=== PATIENT | female | born 1965 | race American Indian/Alaskan Native ===

== ENCOUNTER 2017-07-14 09:00 | Emergency (ER) | payer OTHER ==
[2017-07-14] MEDS ORDERED: ASPIRIN PO ONE (09:20)
[2017-07-14] MEDS ORDERED: ASPIRIN ONE (09:22)
[2017-07-14 09:39] LABS: Basophils % (Auto) 0.5 % (0.0-1.8); Eosinophils # (Auto) 0.1 K/mm3 (0.0-0.4); Eosinophils % (Auto) 1.9 % (0.0-4.3); Hematocrit 38.6 % (30.3-42.9); Lymphocytes # (Auto) 1.3 K/mm3 (1.2-5.4); Lymphocytes % (Auto) 27.4 % (13.4-35.0); Mean Corpuscular HGB Conc 34 % (30-34); Mean Corpuscular Hemoglobin 31 pg (28-32); Mean Corpuscular Volume 92 fl (79-97); Monocytes # (Auto) 0.5 K/mm3 (0.0-0.8); Monocytes % (Auto) 10.3 % (0.0-7.3); Platelet Count 125 K/mm3 (140-440); Red Blood Count 4.19 M/mm3 (3.65-5.03); Red Cell Distribution Width 14.6 % (13.2-15.2)
[2017-07-14 09:55] LABS: BUN/Creatinine Ratio 11; Blood Urea Nitrogen 8 mg/dL (7-17); Calcium 9.4 mg/dL (8.4-10.2); Hemolysis Index 3
--- NOTE | 2017-07-14 11:31 | Emergency Department Report ---
ED Chest Pain HPI - General Chief Complaint: Chest Pain Stated Complaint: CHEST PAIN, DIZZY Time Seen by Provider: 07/14/17 10:03 Source: patient Mode of arrival: Ambulatory Limitations: No Limitations - History of Present Illness Initial Comments: 52-year-old female with history of hypertension, diabetes and tobacco abuse presents with several months of left-sided sharp chest pain. Chest pain is worse with exertion. Currently 3 out of 10 pain severity at rest. Pain is been intermittent. She is concerned that the pain has been more frequent and more severe recently. No radiation of the pain. In 2014 while undergoing elective colonoscopy, the procedure was canceled due to EKG or heel top lift splitter tracing abnormality. She was referred to Dr. Tessa Mclean at [facility]. Outpatient stress test showed a "30 -40%" abnormality. She was placed on metoprolol. Due to lack of health insurance she was unable to follow up with the port captain. She is now followed at [facility]. She is followed every 3-4 months for management of hypertension diabetes. There is no family history of heart disease. There is extensive family history of stroke, hypertension and diabetes. MD Complaint: chest pain -: Gradual, month(s) (several months) Onset: during rest, during exertion Pain Location: left chest Pain Radiation: none Severity: mild Severity scale (0 -10): 3 Quality: sharp Consistency: intermittent Improves With: rest Worsens With: exertion Context: other (2014 history of outpatient cardiac evaluation) Aspirin use within the Past 7 Days: (1) Yes - Related Data On Oral Contraceptives: No Home Medications Medication Instructions Recorded Confirmed Last Taken metFORMIN [Glucophage] 500 mg PO BID 03/18/13 04/13/14 04/12/14 Aspirin EC [Aspirin Enteric Coated 81 mg PO PRN 04/06/14 04/13/14 04/05/14 TAB] Lisinopril [Zestril TAB] 20 mg PO QDAY 04/06/14 04/13/14 04/13/14 05:30 Loratadine [Claritin] 10 mg PO PRN 04/06/14 04/13/14 04/04/14 Allergies Allergy/AdvReac Type Severity Reaction Status Date / Time No Known Allergies Allergy Unverified 03/18/13 01:23 Heart Score - HEART Score History: Highly suspicious EKG: Normal Age: 45-65 Risk factors: > 3 risk factors or hx of atherosclerotic disease Troponin: < normal limit HEART Score: 5 ED Review of Systems ROS: Stated complaint: CHEST PAIN, DIZZY Other details as noted in HPI Comment: All other systems reviewed and negative Constitutional: denies: fever, malaise ENT: denies: ear pain, throat pain Respiratory: denies: cough Cardiovascular: chest pain ED Past Medical Hx - Past Medical History Previous Medical History?: Yes Hx Hypertension: Yes (FOR 9 YRS, DR. DAVIES- PCP) Hx CVA: No Hx Heart Attack/AMI: No Hx Congestive Heart Failure: No Hx Diabetes: Yes (FOR 9 YRS) Hx Deep Vein Thrombosis: No Hx Pulmonary Embolism: No Hx GERD: No Hx Liver Disease: No Hx Renal Disease: No Hx Sickle Cell Disease: No Hx Arthritis: No Hx Headaches / Migraines: No Hx Seizures: No Hx Kidney Stones: No Hx Psychiatric Treatment: No Hx Asthma: No Hx COPD: No Hx Tuberculosis: No Hx Dementia: No Hx HIV: No - Surgical History Past Surgical History?: No - Social History Smoking Status: Current Every Day Smoker Substance Use Type: Alcohol, Prescribed - Medications Home Medications: Home Medications Medication Instructions Recorded Confirmed Last Taken Type metFORMIN [Glucophage] 500 mg PO BID 03/18/13 04/13/14 04/12/14 History Aspirin EC [Aspirin Enteric Coated 81 mg PO PRN 04/06/14 04/13/14 04/05/14 History TAB] Lisinopril [Zestril TAB] 20 mg PO QDAY 04/06/14 04/13/14 04/13/14 05:30 History Loratadine [Claritin] 10 mg PO PRN 04/06/14 04/13/14 04/04/14 History ED Physical Exam - General Limitations: No Limitations General appearance: alert, in no apparent distress - Head Head exam: Present: atraumatic, normocephalic - Eye Eye exam: Present: normal appearance. Absent: scleral icterus, conjunctival injection, nystagmus - ENT ENT exam: Present: normal exam, normal orophraynx, mucous membranes moist - Neck Neck exam: Present: normal inspection. Absent: meningismus - Respiratory Respiratory exam: Present: normal lung sounds bilaterally. Absent: respiratory distress, wheezes, rales, rhonchi - Cardiovascular Cardiovascular Exam: Present: regular rate, normal rhythm, normal heart sounds. Absent: bradycardia, tachycardia, systolic murmur, diastolic murmur, rubs, gallop - GI/Abdominal GI/Abdominal exam: Present: soft, normal bowel sounds. Absent: distended, tenderness, guarding, rebound, rigid - Extremities Exam Extremities exam: Present: normal inspection. Absent: pedal edema - Back Exam Back exam: Present: normal inspection - Neurological Exam Neurological exam: Present: alert, oriented X3 - Psychiatric Psychiatric exam: Present: normal affect, normal mood - Skin Skin exam: Present: warm, dry, intact, normal color. Absent: rash ED Course Vital Signs 07/14/17 07/14/17 07/14/17 09:17 10:11 10:12 Temperature 98.6 F 98.1 F Pulse Rate 73 72 Respiratory 18 18 18 Rate Blood Pressure 150/84 Blood Pressure 142/89 [Left] O2 Sat by Pulse 99 98 98 Oximetry ED Medical Decision Making - Lab Data Result diagrams: 07/14/17 09:27 07/14/17 09:24 Laboratory Results - last 24 hr 07/14/17 07/14/17 09:24 09:27 WBC 4.8 RBC 4.19 Hgb 13.0 Hct 38.6 MCV 92 MCH 31 MCHC 34 RDW 14.6 Plt Count 125 L Lymph % (Auto) 27.4 [place] % (Auto) 10.3 H Eos % (Auto) 1.9 Baso % (Auto) 0.5 Lymph # 1.3 [place] # 0.5 Eos # 0.1 Baso # 0.0 Seg Neutrophils % 59.9 Seg Neutrophils # 2.9 Sodium 142 Potassium 3.2 L Chloride 98.6 Carbon Dioxide 30 Anion Gap 17 BUN 8 Creatinine 0.7 Estimated GFR > 60 BUN/Creatinine Ratio 11 Glucose 171 H Calcium 9.4 Troponin T < 0.010 Vital Signs - 24 hr 07/14/17 07/14/17 07/14/17 09:17 10:11 10:12 Temperature 98.6 F 98.1 F Pulse Rate 73 72 Respiratory 18 18 18 Rate Blood Pressure 150/84 Blood Pressure 142/89 [Left] O2 Sat by Pulse 99 98 98 Oximetry - Medical Decision Making Mrs. Artis presents with chest pain concerning for ACS. I spoke with Yuri Glover of [facility]. She informed me that Mrs. 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 Ms. Glover agreed to consult. Dr. Givens Hospitalist will admit. Critical care attestation.: If time is entered above; I have spent that time in minutes in the direct care of this critically ill patient, excluding procedure time. ED Disposition Clinical Impression: ACS (acute coronary syndrome) Disposition: 09 OP ADMIT IP TO THIS HOSP Is pt being admited?: Yes Does the pt Need Aspirin: No Condition: Stable Time of Disposition: 11:43
--- NOTE | 2017-07-14 12:14 | History and Physical Report ---
History of Present Illness Chief complaint: chest pain History of present illness: 52 YO Female with HTN, DM, Nicotine Dependence presents to ED for evaluation of atypical chest pain. Pt states that she has experienced pain in her chest over the past month. Pt seen and evaluated in ED, and underwent serial ekg, cardiac enzymes, telemetry, and D dimer. No evidence of acute ischemia. Pt found to be hypertensive with symptoms consistent with GERD. Pt medically optimized and back to usual states of health. Pt discharged home with ppi therpay and instructed to f/u pcp within 5 days, as well as cardiology for f/u care and further cardiac testing. Past History Past Medical History: diabetes, hypertension, other (Nicotine Dependence) Social history: , lives with family Family history: hypertension Medications and Allergies Allergies Allergy/AdvReac Type Severity Reaction Status Date / Time No Known Allergies Allergy Unverified 03/18/13 01:23 Home Medications Medication Instructions Recorded Confirmed Last Taken Type Losartan/Hydrochlorothiazide 1 each PO DAILY 07/14/17 07/14/17 07/14/17 History [Losartan-Hctz 100-25 mg Tab] Metoprolol [Lopressor TAB] 50 mg PO BID 07/14/17 07/14/17 07/14/17 History metFORMIN [Glucophage] 850 mg PO BID 07/14/17 07/14/17 07/13/17 History Review of Systems Constitutional: no weight loss, no weight gain, no fever, no chills Ears, nose, mouth and throat: no ear pain, no ear discharge, no tinnitis, no decreased hearing, no nose pain Cardiovascular: chest pain, no orthopnea, no palpitations, no rapid/irregular heart beat, no edema, no syncope, no lightheadedness, no shortness of breath, no dyspnea on exertion, no paroxysmal nocturnal dyspnea, no claudication, no phlebitis, no leg edema, no decreased exercise tolerance Respiratory: no cough, no cough with sputum, no hemoptysis, no shortness of breath, no dyspnea on exertion Gastrointestinal: no abdominal pain, no nausea, no vomiting, no diarrhea, no constipation Genitourinary Female: no pelvic pain, no flank pain, no menorrhagia, no dysuria , no urinary frequency, no urgency Rectal: no pain, no incontinence, no bleeding Musculoskeletal: no neck stiffness, no neck pain, no shooting arm pain, no arm numbness/tingling, no low back pain, no shooting leg pain, no leg numbness/ tingling Integumentary: no rash, no pruritis, no redness, no sores, no wounds, no jaundice, no boils Neurological: no head injury, no transient paralysis, no paralysis, no weakness , no parathesias, no numbness, no tingling, no seizures, no syncope, no tremors Psychiatric: no anxiety, no memory loss, no change in sleep habits, no sleep disturbances, no insomnia, no hypersomnia, no change in appetite, no change in libido, no suicidal ideation Endocrine: no cold intolerance, no heat intolerance, no polyphagia, no excessive thirst, no polydipsia, no polyuria, no nocturia Hematologic/Lymphatic: no easy bruising, no easy bleeding, no lymphadenopathy, no lymphedema Allergic/Immunologic: no urticaria, no allergic rhinitis, no wheezing, no persistent infections, no anaphylaxis Exam - Constitutional Vitals: Temp Pulse Resp BP Pulse Ox 98.1 F 72 18 142/89 98 07/14/17 10:11 07/14/17 10:11 07/14/17 10:12 07/14/17 10:11 07/14/17 10:12 General appearance: Present: no acute distress, well-nourished - EENT Eyes: Present: PERRL ENT: hearing intact, clear oral mucosa - Neck Neck: Present: supple, normal ROM - Respiratory Respiratory effort: normal Respiratory: bilateral: CTA - Cardiovascular Heart Sounds: Present: S1 & S2. Absent: rub, click - Extremities Extremities: pulses symmetrical, No edema Peripheral Pulses: within normal limits - Abdominal General gastrointestinal: Present: soft, non-tender, non-distended, normal bowel sounds Female genitourinary: Present: normal - Integumentary Integumentary: Present: clear, warm, dry - Musculoskeletal Musculoskeletal: gait normal, strength equal bilaterally - Psychiatric Psychiatric: appropriate mood/affect, intact judgment & insight - Neurologic Neurologic: CNII-XII intact, moves all extremities Results - Labs CBC & Chem 7: 07/14/17 09:27 07/14/17 09:24 Labs: Abnormal lab results 07/14/17 07/14/17 Range/Units 09:24 09:27 Plt Count 125 L (140-440) K/mm3 [place] % (Auto) 10.3 H (0.0-7.3) % Potassium 3.2 L (3.6-5.0) mmol/L Glucose 171 H (65-100) mg/dL Assessment and Plan - Patient Problems (1) Atypical chest pain Current Visit: Yes Status: Acute Plan to address problem: serial cardiac enzymes, ekg, telemetry, d dimer normal, Discharge home with ppi therapy, outpatient cardiology f/u 3/5 days, f/u pcp within 5 days. (2) GERD (gastroesophageal reflux disease) Current Visit: Yes Status: Acute Plan to address problem: PPI trial therapy (3) Hypertension Current Visit: Yes Status: Acute Qualifiers: Hypertension type: essential hypertension Qualified Code(s): I10 - Essential (primary) hypertension Plan to address problem: continue pre hospital antihypertensive therapy, blood pressure log 3x daily. (4) Nicotine dependence Current Visit: Yes Status: Acute Qualifiers: Substance use status: in withdrawal Plan to address problem: Pt counseled regarding smoking cessation,
[2017-07-14 15:19] VITALS: BP 153/85
== END 2017-07-14 15:19 | disposition admitted as inpatient to this hospital (09) ==
LOC: ED 09:00
DX: I10 Essential (primary) hypertension (principal); E11.9 Type 2 diabetes mellitus without complications; F17.200 Nicotine dependence, unspecified, uncomplicated
CPT/HCPCS: 36415; 80048; 84484; 85025; 85379; 93005; 93010

== ENCOUNTER 2017-12-15 20:17 | Emergency (ER) | payer SELFPAY ==
[2017-12-15 20:41] VITALS: BP 155/83
[2017-12-15] MEDS ORDERED: BOOSTRIX IM ONE (23:48)
--- NOTE | 2017-12-15 23:54 | Emergency Department Report ---
ED ENT HPI - General Chief complaint: Skin/Abscess/Foreign Body Stated complaint: FB IN RT EAR Time Seen by Provider: 12/15/17 23:28 Source: patient Mode of arrival: Ambulatory Limitations: No Limitations - History of Present Illness Initial comments: This is a 52-year-old female nontoxic, well nourished in appearance, no acute signs of distress presents to the ED with c/o of foreign body in the right ear. She stated that her earring got stuck in her ear. Patient denies any trauma. Patient denies any decreased hearing. Patient denies any ear discharge, fever , chills, nausea, vomiting, headache, chest pain and shortness of breath. Patient denies any allergies. She is not up-to-date with tetanus. MD complaint: ear pain Location: R ear Severity scale (0 -10): 0 Improves with: none Worsens with: none Associated Symptoms: denies: fever, cough, gum swelling, toothache, pain with swallowing, sore throat, tinnitus, hearing loss, discharge from ear, rhinorrhea - Related Data Home Medications Medication Instructions Recorded Confirmed Last Taken Losartan/Hydrochlorothiazide 1 each PO DAILY 07/14/17 07/14/17 07/14/17 [Losartan-Hctz 100-25 mg Tab] Metoprolol [Lopressor TAB] 50 mg PO BID 07/14/17 07/14/17 07/14/17 metFORMIN [Glucophage] 850 mg PO BID 07/14/17 07/14/17 07/13/17 Previous Rx's Medication Instructions Recorded Last Taken Type Pantoprazole [Protonix TAB] 20 mg PO QDAY #30 tablet. 07/14/17 Unknown Rx Ciprofloxacin 0.2%(Nf) 2 drops AD TID #1 droperette 12/15/17 Unknown Rx [Ciprofloxacin OTIC] Allergies Allergy/AdvReac Type Severity Reaction Status Date / Time No Known Allergies Allergy Unverified 03/18/13 01:23 ED Dental HPI - General Chief complaint: Skin/Abscess/Foreign Body Stated complaint: FB IN RT EAR Time Seen by Provider: 12/15/17 23:28 Source: patient Mode of arrival: Ambulatory Limitations: No Limitations - Related Data Home Medications Medication Instructions Recorded Confirmed Last Taken Losartan/Hydrochlorothiazide 1 each PO DAILY 07/14/17 07/14/17 07/14/17 [Losartan-Hctz 100-25 mg Tab] Metoprolol [Lopressor TAB] 50 mg PO BID 07/14/17 07/14/17 07/14/17 metFORMIN [Glucophage] 850 mg PO BID 07/14/17 07/14/17 07/13/17 Previous Rx's Medication Instructions Recorded Last Taken Type Pantoprazole [Protonix TAB] 20 mg PO QDAY #30 tablet. 07/14/17 Unknown Rx Ciprofloxacin 0.2%(Nf) 2 drops AD TID #1 droperette 12/15/17 Unknown Rx [Ciprofloxacin OTIC] Allergies Allergy/AdvReac Type Severity Reaction Status Date / Time No Known Allergies Allergy Unverified 03/18/13 01:23 ED Review of Systems ROS: Stated complaint: FB IN RT EAR Other details as noted in HPI Constitutional: denies: chills, fever Eyes: denies: eye pain, eye discharge, vision change ENT: denies: ear pain, throat pain Respiratory: denies: cough, shortness of breath, wheezing Cardiovascular: denies: chest pain, palpitations Endocrine: no symptoms reported Gastrointestinal: denies: abdominal pain, nausea, diarrhea Genitourinary: denies: urgency, dysuria, discharge Musculoskeletal: denies: back pain, joint swelling, arthralgia Skin: denies: rash, lesions Neurological: denies: headache, weakness, paresthesias Psychiatric: denies: anxiety, depression Hematological/Lymphatic: denies: easy bleeding, easy bruising ED Past Medical Hx - Past Medical History Hx Hypertension: Yes (FOR [address] YRS, [address] DAVIES- PCP) Hx CVA: No Hx Heart Attack/AMI: No Hx Congestive Heart Failure: No Hx Diabetes: Yes (FOR 9 YRS) Hx Deep Vein Thrombosis: No Hx Pulmonary Embolism: No Hx GERD: No Hx Liver Disease: No Hx Renal Disease: No Hx Sickle Cell Disease: No Hx Arthritis: No Hx Headaches / Migraines: No Hx Seizures: No Hx Kidney Stones: No Hx Psychiatric Treatment: No Hx Asthma: No Hx COPD: No Hx Tuberculosis: No Hx Dementia: No Hx HIV: No - Social History Smoking Status: Current Every Day Smoker Substance Use Type: None - Medications Home Medications: Home Medications Medication Instructions Recorded Confirmed Last Taken Type Losartan/Hydrochlorothiazide 1 each PO DAILY 07/14/17 07/14/17 07/14/17 History [Losartan-Hctz 100-25 mg Tab] Metoprolol [Lopressor TAB] 50 mg PO BID 07/14/17 07/14/17 07/14/17 History Pantoprazole [Protonix TAB] 20 mg PO QDAY #30 tablet. 07/14/17 Unknown Rx metFORMIN [Glucophage] 850 mg PO BID 07/14/17 07/14/17 07/13/17 History Ciprofloxacin 0.2%(Nf) 2 drops AD TID #1 droperette 12/15/17 Unknown Rx [Ciprofloxacin OTIC] ED Physical Exam - General Limitations: No Limitations General appearance: alert, in no apparent distress - Head Head exam: Present: atraumatic, normocephalic - Eye Eye exam: Present: normal appearance - ENT ENT exam: Present: normal orophraynx, mucous membranes moist, normal external ear exam, other (White circular perral right ear.) - Neck Neck exam: Present: normal inspection, full ROM. Absent: tenderness, meningismus, lymphadenopathy - Respiratory Respiratory exam: Present: normal lung sounds bilaterally. Absent: respiratory distress - Cardiovascular Cardiovascular Exam: Present: regular rate, normal rhythm. Absent: systolic murmur, diastolic murmur, rubs, gallop - GI/Abdominal GI/Abdominal exam: Present: soft, normal bowel sounds - Extremities Exam Extremities exam: Present: normal inspection - Back Exam Back exam: Present: normal inspection - Neurological Exam Neurological exam: Present: alert, oriented X3 - Psychiatric Psychiatric exam: Present: normal affect, normal mood - Skin Skin exam: Present: warm, dry, intact, normal color. Absent: rash ED Course Vital Signs 12/15/17 20:38 Temperature 98.6 F Pulse Rate 77 Respiratory 16 Rate Blood Pressure 155/83 O2 Sat by Pulse 100 Oximetry - Reevaluation(s) Reevaluation #1: 12/15/17 23:55 Patient is speaking in full sentences with no signs of distress noted. - Foreign Body Removal Ear Location: ear canal (R) Foreign Body Suspected: other (earring) If Insect Suspected: ear canal inspected-intac Foreign Body Removed: yes Foreign Body Removal Technique: suction catheter Tympanic Membrane Intact: Yes Patient Tolerated Procedure: well, no complications Complications: none Critical care attestation.: If time is entered above; I have spent that time in minutes in the direct care of this critically ill patient, excluding procedure time. ED Disposition Clinical Impression: Foreign body in right ear Qualifiers: Encounter type: initial encounter Qualified Code(s): T16.1XXA - Foreign body in right ear, initial encounter Disposition: TO HOME OR SELFCARE Is pt being admited?: No Does the pt Need Aspirin: No Condition: Stable Instructions: Ear Foreign Body (ED) Additional Instructions: Follow-up with a primary care doctor in 3-5 days or if symptoms worsen and continue return to emergency room as soon as possible. Prescriptions: Ciprofloxacin 0.2%(Nf) [Ciprofloxacin OTIC] 2 drops AD TID #1 droperette Referrals: AMY DORADO MD [Primary Care Provider] - 3-5 Days PRIMARY CARE, [Referring] - 3-5 Days [facility] [Outside] - 3-5 Days Forms: Work/School Release Form(ED)
== END 2017-12-16 00:10 | disposition home or self-care (01) ==
LOC: ED 20:17
DX: T16.1XXA Foreign body in right ear, initial encounter (principal); I10 Essential (primary) hypertension; E11.9 Type 2 diabetes mellitus without complications; F17.200 Nicotine dependence, unspecified, uncomplicated; X58.XXXA Exposure to other specified factors, initial encounter; Y93.89 Activity, other specified; Y92.89 Other specified places as the place of occurrence of the external cause; Y99.8 Other external cause status
CPT/HCPCS: 90471; 90715

== ENCOUNTER 2018-09-28 16:53 | Emergency (ER) | payer SELFPAY ==
[2018-09-28 17:34] VITALS: BP 140/76
--- NOTE | 2018-09-28 17:35 | Emergency Department Report ---
Blank Doc - Documentation Documentation: 53 year old female presenst cc of coughing and sob has pmh asthma respirating well xray ACC eval
--- NOTE | 2018-09-28 18:08 | XRay Report ---
PROCEDURE: XR CHEST ROUTINE 2V TECHNIQUE: PA and lateral chest radiographs were obtained. HISTORY: cough COMPARISONS: None. FINDINGS: Heart: Normal. Mediastinum/Vessels: Normal. Lungs/Pleural space: There is patchy left lingular airspace opacity. No effusion or pneumothorax. Bony thorax: No acute osseous abnormality. IMPRESSION: Patchy left lingular airspace opacity, which could be related to early pneumonia. This document is electronically signed by Kalani Rodriguez MD., Sep 28 2018 06:06:20 PM ET
== END 2018-09-28 20:45 | disposition left against medical advice (07) ==
LOC: ED 16:53
DX: R06.02 Shortness of breath (principal); Z53.21 Procedure and treatment not carried out due to patient leaving prior to being seen by health care provider
CPT/HCPCS: 71046